=== PATIENT | male | born 1970 | race Caucasian/White ===

== ENCOUNTER → 2020-08-11 | Outpatient (CLI) | payer OTHER ==
[~2020-08-11] MED LIST: ASPIRIN EC81 MG PO; ATORVASTATIN CA20 MG PO; BROVANA15 MCG/2 M NEB; BUDESONIDE0.5 MG/2 M NEB; CLOPIDOGREL75 MG PO; CRESTOR 10 MG T10 MG PO; FUROSEMIDE20 MG PO; HYDRALAZINE HCL10 MG PO; HYDROXYZINE HCL10 MG PO; LISINOPRIL10 MG PO; LISINOPRIL20 MG PO; LOPRESSOR 25 MG25 MG PO; NITROGLYCERIN0.4 MG SL; VENTOLIN HFA 66.7 GM INH
== END ==
LOC: HEART 5 13:55
DX: R00.2 Palpitations (principal)

== ENCOUNTER → 2020-12-29 | Outpatient (CLI) | payer OTHER | LOC: ECHO 11:51 | DX: R06.02 Shortness of breath (principal); I51.7 Cardiomegaly | CPT/HCPCS: ECHO; 93306 ==

== ENCOUNTER → 2021-02-01 | Outpatient (CLI) | payer OTHER | LOC: HEART 5 14:36 | DX: R06.02 Shortness of breath (principal) | CPT/HCPCS: 71046; 94060; 94729 ==

== ENCOUNTER → 2021-02-01 | Outpatient (CLI) | payer OTHER | LOC: EXRD 15:11 | DX: R06.02 Shortness of breath (principal) | CPT/HCPCS: 71046 ==

== ENCOUNTER → 2021-03-18 | Outpatient (CLI) | payer OTHER | LOC: NM 03-17 09:00 | DX: I20.9 Angina pectoris, unspecified (principal) | CPT/HCPCS: 78452; 93017; A9502; J2785 ==